=== PATIENT | female | born 1935 | race Caucasian/White ===

== ENCOUNTER 2016-10-25 17:33 | Inpatient (IN) ==
[2016-10-25] MEDS ORDERED: 0.9 % Sodium Chloride 1,000 ML IVC ONE (18:43)
--- NOTE | 2016-10-25 18:45 | Emergency Department Note ---
Disposition Clinical Impression: Afib Qualifiers: Atrial fibrillation type: unspecified Qualified Code(s): I48.91 - Unspecified atrial fibrillation Chest pain Qualifiers: Chest pain type: unspecified Qualified Code(s): R07.9 - Chest pain, unspecified Disposition: Still a Patient Condition: Good Referrals: NO,PCP [Primary Care Provider] - Forms: ED Satisfaction Letter SOB HPI - General Chief Complaint: ED Shortness of Breath/Dyspnea Stated Complaint: Poss PE Time Seen by Provider: 10/25/16 18:05 Source: patient Mode of arrival: ambulatory Limitations: no limitations Nursing Notes Reviewed: Yes Vital Signs Reviewed: Yes - History of Present Illness 81-year-old female with a history of hypertension, A. fib, DVT in the past presents for evaluation of chest pain and short of breath. Patient states symptoms started on Sunday evening. Noted a pain in her right upper jaw. Patient physically noted pain in her chest. Patient noted shortness of breath. Noted to be a pleuritic chest pain. Symptoms started without exertion. Denies E fevers or cough. Denies any history of heart attacks. Does report a history of remote DVT in her right leg. Patient is not currently on anticoagulation. Patient does have known A. fib. Denies any abdominal pain nausea or vomiting. Patient states that she does not want oxygen at home. - Related Data Home Medications Medication Instructions Recorded Confirmed Alprazolam [Xanax 1 MG Tablet] 0.25 mg PO BID 07/20/15 10/24/16 Lisinopril [Zestril] 20 mg PO DAILY 07/20/15 10/24/16 Metoprolol [Lopressor] 25 mg PO BID 07/20/15 10/24/16 Cranberry Fruit Extract [Cranberry] 1,000 mg PO DAILY 03/03/16 10/24/16 Ferrous Sulfate [Iron] 325 mg PO 10/24/16 Previous Rx's Medication Instructions Recorded Omeprazole [PriLOSEC] 20 mg PO DAILY #14 capsule. 02/29/16 Nystatin [Nystatin Suspension] 100,000 units PO QID #120 ml 05/04/16 Cephalexin [Keflex] 500 mg PO QID #40 capsule 10/24/16 HYDROcodone/Acet 5/325 mg [[place] 1 tab PO Q6H #10 tab 10/24/16 5-325 mg] Allergies Allergy/AdvReac Type Severity Reaction Status Date / Time acetaminophen [From Percocet] AdvReac Hallucinati Verified 10/24/16 03:28 ng aspirin AdvReac Nose Bleed Verified 10/24/16 03:28 Oxycodone [From Percocet] AdvReac Hallucinati Verified 10/24/16 03:28 ng TAPE AdvReac Itching Uncoded 10/24/16 03:28 All systems ED: reviewed and negative except as stated. Constitutional: Reports: as per HPI. Denies: fever Eyes: Reports: as per HPI ENT ED: Reports: as per HPI Cardiovascular: Reports: as per HPI, chest pain. Denies: palpitations Respiratory: Reports: as per HPI Gastrointestinal: Reports: as per HPI. 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 - Social History Smoking Status: Never smoker Smokeless Tobacco Status: No Alcohol use: Reports: none Drug use: Reports: none Physical Exam - General Limitations: no limitations General appearance: alert, in no apparent distress - Head Head exam: atraumatic, normocephalic, normal inspection - Eye Eye exam: Present: normal appearance, EOMI - ENT ENT exam: normal exam, mucous membranes moist - Neck Neck exam: Present: normal inspection, trachea midline - Chest Chest inspection: Present: normal inspection, symmetric chest wall rise - Respiratory Respiratory exam: Present: other (Diffusely diminished breath sounds with poor respiratory effort). Absent: respiratory distress, accessory muscle use - Cardiovascular Cardiovascular exam: Present: tachycardia, irregular rhythm - Abdominal Exam Abdominal exam: Present: soft, Non-Tender. Absent: distention, guarding, rebound - Extremities Exam Extremities exam: Present: normal inspection, pedal edema (Trace bilateral) - Back Exam Back exam: Present: normal inspection, full ROM. Absent: tenderness - Neurological Exam Neurological exam: Present: alert, oriented X3, CN II-XII intact - Skin Skin exam: Present: warm, dry, intact Course Course Narrative: Patient was seen and examined. Patient was noted to be tachycardic with irregular rate from the 130s to the 140s. Patient's blood pressure was stable with a systolic in the 120s. Patient's mental status appears at baseline. Patient does have episodes of confabulation. Patient's son at bedside states that they were evaluated at [place] 2 days ago for similar complaint. Concerns for cardiopulmonary etiology of the patient's symptoms which include pulmonary embolism, ACS, pneumonia. Patient will be evaluated with EKG, chest x-ray, labs. The labs from yesterday were reviewed. Patient will also get a CTA of the chest. Patient does have a GFR greater than 30. Risks outweigh the benefits with the patient's kidney function. Patient will be hydrated prior to the scan. Patient will also be started on a Cardizem drip if not adequately controlled with IV fluids. Vital Signs Temperature 97.9 F 10/25/16 17:52 Pulse Rate 101 10/25/16 17:52 Respiratory Rate 20 10/25/16 17:52 Blood Pressure 135/83 10/25/16 17:52 O2 Sat by Pulse Oximetry 91 10/25/16 17:52 Temperature 97.9 F 10/25/16 17:52 Pulse Rate 148 10/25/16 18:26 Respiratory Rate 24 10/25/16 18:26 Blood Pressure 97/78 10/25/16 18:26 O2 Sat by Pulse Oximetry 96 10/25/16 18:26 Oxygen Delivery Oxygen Delivery Nasal Cannula Shortness of Breath/Dyspnea - EKG Data EKG attestation: Yes I reviewed and interpreted this EKG. Rate: Reports: tachycardia Rhythm: Reports: A.Fib [place]/QRS: Reports: normal, RBBB Q waves: Reports: III, aVF T wave inversions noted in: Reports: aVL, v1, v2 When compared to previous EKG there are: no significant changes (sinus rhythm) Interpretation: Reports: unchanged when compared to prior tracing (date) (08/2012 ), nonspecific ST-T wave changes S.B.A.R. - S.B.A.R. Situation: Demographics, MOA Background: Presenting Complaint, Relevant PMH, Meds, & Allergies Assessment: Vital Signs, Course and respsone to treatment, Patient/Family Expectation Recommendation: Barrier(s) to disposition, Recommendation based on pending studies, treatments, or consults Sindy Report Given to: Dr. Levi Callahan Repor Time: 18:52 Attestation Statement - Attestation Attestation: I examined this patient and my medical decision-making was reviewed with the STONE UNLOADER/PA/Advanced Practice Nurse/Resident Physician. I agree with the documented findings, disposition and treatment plan as described except to the extent set forth below. Patient emergency department with chest pain. PCP sent for concern for PE. Patient was hypoxic in the office. ER visit the [place] yesterday and had a CT abdomen was unremarkable. On examination patient is awake and alert. Heart irregularly irregular and tachycardia. Heart rate ranging from 140s to 170s. Lungs clear. Plan. Patient in A. fib with RVR. This appears to be new. We will start on some Cardizem. We will CTA the patient to rule out PE. Last GFR was 47. I believe the risk is outweighed by the benefit at this time. 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
[2016-10-25 19:01] LABS: Basophils % 0.1 %; Eosinophils # 0.1 K/mcL (0.0-0.6); Eosinophils % 0.6 %; Hematocrit 40.6 % (35.3-44.9); Hemoglobin 12.8 g/dL (11.5-15.4); Immature Granulocytes % 0.2 % (0-4); Lymphocytes # 1.5 K/mcL (0.6-4.6); Lymphocytes % 15.4 %; Mean Corpuscular HGB Conc 31.5 g/dL (31.6-35.5); Mean Corpuscular Hemoglobin 27.9 pg (28.0-33.3); Mean Corpuscular Volume 88.6 fL (83.0-100.0); Mean Platelet Volume 11.3 fL (9.4-12.4); Monocytes # 0.7 K/mcL (0.0-1.3); Monocytes % 7.3 %; Neutrophils # 7.6 K/mcL (1.6-8.9); Platelet Count 176 K/mcL (140-400); Red Blood Count 4.58 M/mcL (3.82-4.97); Red Cell Distribution Width 19.5 % (11.5-14.5); Segmented Neutrophils % 76.4 %
[2016-10-25 19:06] LABS: INR 1.3; Prothrombin Time 13.9 Seconds (9.4-12.1)
[2016-10-25 19:08] LABS: Activated Partial Thrombo Time 25.4 Seconds (26.0-36.0)
[2016-10-25 19:17] LABS: Calcium 9.4 mg/dL (8.6-10.8); Potassium 4.3 mEq/L (3.5-4.5)
[2016-10-25 19:23] LABS: VBG HCO3 29.5 mEq/L (21-27); VBG PH 7.37 pH Units (7.32-7.42)
--- NOTE | 2016-10-25 20:11 | Emergency Department Note ---
Disposition Clinical Impression: Pulmonary embolism and infarction Afib Qualifiers: Atrial fibrillation type: unspecified Qualified Code(s): I48.91 - Unspecified atrial fibrillation Disposition: Admitted As Inpatient Condition: Good Referrals: NO,PCP [Non-Partnered Physician] - Forms: ED Satisfaction Letter Time of Disposition: 22:04 SOB HPI - General Chief Complaint: ED Shortness of Breath/Dyspnea Stated Complaint: Poss PE Time Seen by Provider: 10/25/16 18:05 Source: patient Mode of arrival: ambulatory Limitations: no limitations Nursing Notes Reviewed: Yes Vital Signs Reviewed: Yes - History of Present Illness 81 year old female who is a vague historian states that she has been feeling increasingly more dyspneic over the past two weeks. Patient does not have COPD or asthma and is not oxygen dependent or use inhalers or brething treatments at home. Jack states that she also has increased abdominal/chest/rib pain on the RUQ and it is increases with deep breaths. She has had some nausea without vomitting associated with it. Jack has also had chills without recorded fevers at home. Patient states that she followeed up with her primary care doctor, Dr. Wang and he was concerned for a PE and woul dlike a CTA chest to rule it out. Jack also has a history of paroxysmal atrial fibrillation an follows with [facility] for therapy. Her chest pain is described as sharp and non radiating. - Related Data Home Medications Medication Instructions Recorded Confirmed Lisinopril [Zestril] 20 mg PO BID 07/20/15 10/25/16 Metoprolol [Lopressor] 25 mg PO BID 07/20/15 10/25/16 Ferrous Sulfate [Iron] 325 mg PO QAM 10/24/16 10/25/16 Alprazolam [Xanax 0.25 MG Tablet] 0.25 mg PO HS 10/25/16 10/25/16 Nystatin Cream [Mycostatin Cream] 1 appl TP BID PRN 10/25/16 10/25/16 Omeprazole [PriLOSEC] 20 mg PO DAILY PRN 10/25/16 10/25/16 Trolamine Salicylate [Myoflex] 1 appl TP QID PRN 10/25/16 10/25/16 Previous Rx's Medication Instructions Recorded Cephalexin [Keflex] 500 mg PO QID #40 capsule 10/24/16 HYDROcodone/Acet 5/325 mg [[place] 1 tab PO Q6H #10 tab 10/24/16 5-325 mg] Allergies Allergy/AdvReac Type Severity Reaction Status Date / Time acetaminophen [From Percocet] AdvReac Hallucinati Verified 10/24/16 03:28 ng aspirin AdvReac Nose Bleed Verified 10/24/16 03:28 Oxycodone [From Percocet] AdvReac Hallucinati Verified 10/24/16 03:28 ng TAPE AdvReac Itching Uncoded 10/24/16 03:28 Constitutional: Reports: as per HPI. Denies: fever Eyes: Reports: as per HPI ENT ED: Reports: as per HPI Cardiovascular: Reports: as per HPI, chest pain. Denies: palpitations Respiratory: Reports: as per HPI Gastrointestinal: Reports: as per HPI. 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 - Social History Smoking Status: Never smoker Smokeless Tobacco Status: No Alcohol use: Reports: none Drug use: Reports: none Physical Exam - General Limitations: no limitations General appearance: alert, in no apparent distress - Head Head exam: atraumatic, normocephalic, normal inspection - Eye Eye exam: Present: normal appearance, PERRL, EOMI - Expanded Eye Exam Pupils: Left: reactive - ENT ENT exam: normal exam, normal oropharynx, mucous membranes moist - Expanded ENT Exam External ear exam: Present: normal external inspection Mouth exam: Present: normal external inspection Teeth exam: Present: normal inspection Throat exam: Present: normal inspection - Neck Neck exam: Present: normal inspection, full ROM, trachea midline - Chest Chest inspection: Present: normal inspection, symmetric chest wall rise, tenderness (to right lower ribs/midaxillary ) - Respiratory Respiratory exam: Present: normal lung sounds bilaterally - Cardiovascular Cardiovascular exam: Present: tachycardia, irregular rhythm, normal heart sounds - Abdominal Exam Abdominal exam: Present: soft, normal bowel sounds. Absent: Non-Tender, tenderness, distention, guarding, rebound, rigidity, Ballesteros's sign, tenderness at McBurney's Point Abdominal tenderness: Present: RUQ, moderate - Extremities Exam Extremities exam: Present: normal inspection, full ROM. Absent: tenderness, pedal edema - Expanded Upper Extremity Exam Shoulder exam: Present: normal inspection, full ROM Arm exam: Present: normal inspection, full ROM Elbow exam: Present: normal inspection, full ROM Forearm/Wrist exam: Present: normal inspection, full ROM Hand exam: Present: normal inspection, full ROM Vascular exam: Normal: capillary refill, radial pulse - Expanded Lower Extremity Exam Hip/Pelvis exam: Present: normal inspection, full ROM Upper leg exam: Present: normal inspection, full ROM Knee exam: Present: normal inspection, full ROM Lower leg exam: Present: normal inspection, full ROM Ankle exam: Present: normal inspection, full ROM Foot/toe exam: Present: normal inspection, full ROM Neurovascular/Tendon exam: Absent: motor deficit, sensory deficit, tendon deficit - Back Exam Back exam: Present: normal inspection, full ROM. Absent: tenderness - Neurological Exam Neurological exam: Present: alert, oriented X3 - Expanded Neurological Exam Patient oriented to: Present: person, place, time Coma Scale Eye Opening: Spontaneous Coma Scale Motor Response: Obeys Commands Coma Scale Verbal Response: Oriented Coma Scale Total: 15 - Psychiatric Psychiatric exam: Present: normal affect, normal mood - Skin Skin exam: Present: warm, dry, intact, normal color Course Course Narrative: accepted sign out from Dr. Juarez/Con and the plan is to followup on her CTA chest for rule out PE. If study is negative we will still admit or dypnea, hypoxia, atrial fib with RVR. SHe is currently on cardizem drip at the HR is 110s - Consultations Consultation #1: radiologist called with findings of acute right PE involved in the R pulmonary artery and extends into the right middle/lower lobe in addition to pulmonary edema/infarct on the right side. Right Heart strain present as well. We will start heparin therapy now. Time: 21:04 Consultation #2: discussed case with Dr. Pradhan and he would like vascular surgery consulted before acceptance to the medicine service to see if they would do thrombolytics vs thrombectomy for patient. Vascular surgery has been consulted. Patient is full code. Time: 21:27 Consultation #3: vascular surg (Dinesh) does not reccomend thrombolytics at this time secondary to age and increased bleeding risk. we will update hospitalist. Time: 22:04 Vital Signs Temperature 97.9 F 10/25/16 17:52 Pulse Rate 101 10/25/16 17:52 Respiratory Rate 20 10/25/16 17:52 Blood Pressure 135/83 10/25/16 17:52 O2 Sat by Pulse Oximetry 91 10/25/16 17:52 Temperature 97.9 F 10/25/16 17:52 Pulse Rate 91 10/25/16 22:01 Respiratory Rate 20 10/25/16 22:01 Blood Pressure 94/49 10/25/16 22:01 O2 Sat by Pulse Oximetry 96 10/25/16 22:01 Oxygen Delivery Oxygen Delivery Nasal Cannula Shortness of Breath/Dyspnea - Lab Data Result diagrams: 10/25/16 18:47 10/25/16 18:47 Lab Results 10/25/16 10/25/16 10/25/16 Range/Units 18:47 18:47 18:47 WBC 9.9 D (4.3-11.1) K/mcL RBC 4.58 (3.82-4.97) M/mcL Hgb 12.8 (11.5-15.4) g/dL Hct 40.6 (35.3-44.9) % MCV 88.6 (83.0-100.0) fL MCH 27.9 L (28.0-33.3) pg MCHC 31.5 L (31.6-35.5) g/dL RDW 19.5 H (11.5-14.5) % Plt Count 176 (140-400) K/mcL MPV 11.3 (9.4-12.4) fL Immature Gran % 0.2 (0-4) % Seg Neutrophils % 76.4 % Lymphocytes % 15.4 % Monocytes % 7.3 % Eosinophils % 0.6 % Basophils % 0.1 % Neutrophils # 7.6 (1.6-8.9) K/mcL Lymphocytes # 1.5 (0.6-4.6) K/mcL Monocytes # 0.7 (0.0-1.3) K/mcL Eosinophils # 0.1 (0.0-0.6) K/mcL Basophils # 0.0 (0.0-0.2) K/mcL PT (9.4-12.1) Seconds INR APTT (26.0-36.0) Seconds VBG pH (7.32-7.42) pH Units VBG pCO2 (41-51) mmHg VBG pO2 (25-40) mmHg VBG HCO3 (21-27) mEq/L Sodium 128 L D (136-145) mEq/L Potassium 4.3 (3.5-4.5) mEq/L Chloride 93 L (98-109) mEq/L Carbon Dioxide 26 (19-29) mEq/L BUN 20 (7-20) mg/dL Creatinine 1.31 H (0.57-1.11) mg/dL Est GFR ( Amer) 47 L (> 60) Est GFR (Non-Af Amer) 39 L (> 60) BUN/Creatinine Ratio 15 (6-26) Glucose 113 H (70-99) mg/dL Calculated Osmolality 269 L (280-300) Calcium 9.4 (8.6-10.8) mg/dL Troponin I 0.03 (0-0.03) ng/mL B-Natriuretic Peptide (0-100) pg/mL 10/25/16 10/25/16 10/25/16 Range/Units 18:47 18:47 18:56 WBC (4.3-11.1) K/mcL RBC (3.82-4.97) M/mcL Hgb (11.5-15.4) g/dL Hct (35.3-44.9) % MCV (83.0-100.0) fL MCH (28.0-33.3) pg MCHC (31.6-35.5) g/dL RDW (11.5-14.5) % Plt Count (140-400) K/mcL MPV (9.4-12.4) fL Immature Gran % (0-4) % Seg Neutrophils % % Lymphocytes % % Monocytes % % Eosinophils % % Basophils % % Neutrophils # (1.6-8.9) K/mcL Lymphocytes # (0.6-4.6) K/mcL Monocytes # (0.0-1.3) K/mcL Eosinophils # (0.0-0.6) K/mcL Basophils # (0.0-0.2) K/mcL PT 13.9 H (9.4-12.1) Seconds INR 1.3 APTT 25.4 L (26.0-36.0) Seconds VBG pH 7.37 (7.32-7.42) pH Units VBG pCO2 51 (41-51) mmHg VBG pO2 34 (25-40) mmHg VBG HCO3 29.5 H (21-27) mEq/L Sodium (136-145) mEq/L Potassium (3.5-4.5) mEq/L Chloride (98-109) mEq/L Carbon Dioxide (19-29) mEq/L BUN (7-20) mg/dL Creatinine (0.57-1.11) mg/dL Est GFR ( Amer) (> 60) Est GFR (Non-Af Amer) (> 60) BUN/Creatinine Ratio (6-26) Glucose (70-99) mg/dL Calculated Osmolality (280-300) Calcium (8.6-10.8) mg/dL Troponin I (0-0.03) ng/mL B-Natriuretic Peptide 307 H (0-100) pg/mL - EKG Data EKG attestation: Yes I reviewed and interpreted this EKG. EKG results narrative: atrial fibrillation with rate of 148. NO STEMI. change from 08/12/12. 1814 Attestation Statement - Attestation Attestation: I performed a history and physical examination of the patient and discussed his management with the resident. I reviewed the residents note and agree with the documented findings and plan of care. This is an 81-year-old female who was sent in by her primary physician with suspicion of pulmonary embolism. She has been having shortness of breath for about a week. She had a large pulmonary emboli on the right side. The case was discussed with vascular surgery as well as the hospitalist to arrange for admission. She has remained clinically stable and is not a TPA candidate at this time. Admitted to the hospitalist service.
[2016-10-25] MEDS ORDERED: *HR* Heparin 5,000 UNIT/ML VIAL IVP ONE (21:05)
[2016-10-25] MEDS ORDERED: *HR* Heparin 5,000 UNIT/ML VIAL IVP PRN ×2 (21:05)
[2016-10-25] MEDS ORDERED: Heparin 25,000 UNIT/500 ML D5W 25,000 UNIT/500 ML MLS IVC SCH (21:15)
[2016-10-25] MEDS ORDERED: Naloxone 0.4 MG/ML INJ IVP PRN (23:48)
--- NOTE | 2016-10-25 23:48 | Internal Med History&Physical ---
<Mirlande Spencer - Last Filed: 10/26/16 01:24> Date of Encounter: 10/26/16 Time of Encounter: 23:00 Assessment and Plan (1) Pulmonary embolism and infarction Current visit: Yes Status: Acute - CTA chest found significant emboli in right pulmonary artery extending to right middle lobe and lower lobe along with some possible right lung infarct and pleural effusion - Unprovoked PE may be secondary to underlying coagulopathy given patient has history of DVT in the past. - Will obtain echocardiogram to evaluate for possible right heart strain. May consider cardiology consult if echo finds significant heart dysfunction. - Will switch from heparin drip to Lovenox so patient does not need to get frequent poke. - Lovenox 1 mg/kg SQ q12H for now given CrCl at 35. May need to change to q24H if CrCl 30 or less. - Okay to give one dose of oxycodone 5 mg for pleuritic pain now. Will give Tylenol prn pain. - Supplemental oxygen. - Closely monitor with continuous pulse oximetry and telemetry. (2) Afib Current visit: Yes Status: Acute - Newly diagnosed A-fib. - Likely secondary to current PE and possible heart strain. - Currently in sinus rhythm at rate of 90s. - Will switch from Cardizem drip to PO metoprolol for rate control. - Lovenox for anticoagulation. - Closely monitor with telemetry. - Given patient will need to be on anticoagulation for PE, inpatient cardiology consult is not indicated at this time. But patient is recommended to follow up with her outpatient cardiology Dr. Lizama. Qualifiers: Atrial fibrillation type: paroxysmal Qualified Code(s): I48.0 - Paroxysmal atrial fibrillation (3) UTI (urinary tract infection) Current visit: No Status: Acute - Dysuria with UA from 10/24/16 suggested possible UTI. - Start IV ceftriaxone. Qualifiers: Urinary tract infection type: site unspecified Hematuria presence: without hematuria Qualified Code(s): N39.0 - Urinary tract infection, site not specified (4) Renal insufficiency Current visit: Yes Status: Acute - SCr 1.31 with CrCl 35. - Can potential get worse given patient had IV contrast from CTA chest. - Aggressive hydration with IV NS. - Continue to monitor renal function and electrolytes. (5) Hyponatremia Current visit: Yes Status: Acute - Na 128 on initial presentation, which is an acute drop from Na 136 on 10/24. - History of hyponatremia from diuretics in the past. - Continue IV NS. - Recheck in the morning. (6) Hypertension Current visit: Yes Status: Chronic - Continue home dose antihypertensive regimen. Qualifiers: Hypertension type: essential hypertension Qualified Code(s): I10 - Essential (primary) hypertension Internal Medicine - H&P: HPI Chief complaint: Right-sided chest pain and shortness of breath Admitted From: Emergency Dept Plans for Post Hospital Care: Home History of present illness: Ms. Ruiz is a 81 year old female with PMH of atrial premature beats, HTN, venous insufficiency, hyponatremia, history of right LE DVT (in 07/2015 and was on Coumadin for 6-7 months but then discontinued), history of cervical cancer in 1984 s/p hysterectomy and radiation. Patient first noticed to have strange feeling behind right ear on 10/22 morning and then progressed to become right lower chest pain. The pain is aggravated by deep breath and cough. It's associated with shortness of breath and some subjective fever. Patient had an ED visit on 10/24 and was discharged home with Keflex for UTI since labs, CXR and CT A/P at that time were mostly unremarkable. Patient continues to right- sided chest pain and started to notice some pink-tinged sputum production so she saw her Dr. Wang on 10/25 who sent patient to [place] ED for the concern of PE. Patient denies lightheadedness, syncope, significant LE swelling, nausea, vomiting, diarrhea, hematochezia, melena, hematuria. Patient still has some dysuria. Patient reports being cancer-free and denies recent travel, surgery or long-term immobilization. Patient is full code. CTA chest in ED found significant emboli in right pulmonary artery extending to right middle lobe and lower lobe along with some possible right lung infarct and pleural effusion. Patient was started on heparin drip. Patient was also noted to develope A-fib RVR in ED but converted to sinus rhythm after Cardizem was started. Patient will be admitted for further evaluation and management. Past Med Surg Social Fam HX - Past Medical History Medical history: cancer (Cervical cancer in 1984 s/p hysterectomy and radiation therapy.), hyperlipidemia, hypertension, peripheral artery disease Psychiatric history: anxiety - Past Surgical History Surgical History: non-contributory, hip replacement (Bilateral), hysterectomy - Social History Smoking Status: Never smoker Smokeless Tobacco Status: No Alcohol use: none Drug use: none Internal Medicine - H&P: Meds Lisinopril [Zestril] 20 mg PO BID 07/20/15 [History] Metoprolol [Lopressor] 25 mg PO BID 07/20/15 [History] Cephalexin [Keflex] 500 mg PO QID #40 capsule 10/24/16 [Rx] Ferrous Sulfate [Iron] 325 mg PO QAM 10/24/16 [History] HYDROcodone/Acet 5/325 mg [Jachin 5-325 mg] 1 tab PO Q6H #10 tab 10/24/16 [Rx] Alprazolam [Xanax 0.25 MG Tablet] 0.25 mg PO HS 10/25/16 [History] Nystatin Cream [Mycostatin Cream] 1 appl TP BID PRN 10/25/16 [History] Omeprazole [PriLOSEC] 20 mg PO DAILY PRN 10/25/16 [History] Trolamine Salicylate [Myoflex] 1 appl TP QID PRN 10/25/16 [History] Allergies aspirin Adverse Reaction (Verified 10/24/16 03:28) Nose Bleed TAPE Adverse Reaction (Uncoded 10/24/16 03:28) Itching All Systems PM: A 10-system review of systems was performed and is negative for pertinent findings except as documented above in the HPI. - Constitutional Constitutional: fever(s), weight loss (4-5 lbs over 3 months), no anorexia - EENT Eyes: no change in vision Ears: no decreased hearing Nose, mouth and throat: no dysphagia, no odynophagia - Cardiovascular Cardiovascular ROS IM: as per HPI, chest pain, palpitations, no lightheadedness , no syncope - Respiratory Respiratory: as per HPI, cough, dyspnea, change in phlegm color - Gastrointestinal Gastrointestinal: constipation (from iron pill), no abdominal pain, no diarrhea , no hematochezia, no nausea, no vomiting - Genitourinary Genitourinary: dysuria, no difficulty urinating, no hematuria - Musculoskeletal Musculoskeletal ROS IM: no arthralgias, no myalgias - Integumentary Integumentary IM: no pruritus, no rash - Neurological Neurological ROS: no focal weakness, no numbness, no tingling - Hematologic/Lymphatic Hematologic/Lymphatic: no easy bleeding, no easy bruising - Constitutional Vitals: Temp Pulse Resp BP Pulse Ox 97.9 F 73 18 131/64 96 10/25/16 17:52 10/25/16 22:45 10/25/16 22:51 10/25/16 22:51 10/25/16 22:45 General appearance: Present: cooperative, mild distress (from intermittent pain underneath right breast.), A&O X 3, answers questions appropriately - Head Head exam: Present: atraumatic, normocephalic - Eye Eye exam: Present: EOMI, PERRL, conjuntiva pink, sclera anicteric - Neck Neck exam general surgery: Present: supple, trachea midline. Absent: lymphadenopathy - Respiratory Respiratory exam: Present: decreased breath sounds. Absent: accessory muscle use, rales, rhonchi, wheezes - Cardiovascular Cardiovascular exam: Present: +S1, +S2, tachycardia. Absent: diastolic murmur, gallop, rubs, systolic murmur - GI/Abdominal GI/Abdominal exam: Present: normal bowel sounds, soft, no peritoneal signs. Absent: distended, tenderness - Extremities Exam Extremities exam: Present: warm, radial pulses palpable and symetrical. Absent : cyanotic, pedal edema - Neurological Exam Neurological exam: Present: CN II-XII intact, oriented X3, no focal deficits. Absent: pronater drift, facial droop, speech deficit - Skin Skin exam: Present: dry, intact, warm Internal Med - H&P Results - Labs CBC & Chem 7: 10/25/16 18:47 10/25/16 18:47 Labs: Short CBC 10/25/16 Range/Units 18:47 WBC 9.9 D (4.3-11.1) K/mcL Hgb 12.8 (11.5-15.4) g/dL Hct 40.6 (35.3-44.9) % Plt Count 176 (140-400) K/mcL Neutrophils # 7.6 (1.6-8.9) K/mcL BMP 10/25/16 Range/Units 18:47 Sodium 128 L D (136-145) mEq/L Potassium 4.3 (3.5-4.5) mEq/L Chloride 93 L (98-109) mEq/L Carbon Dioxide 26 (19-29) mEq/L BUN 20 (7-20) mg/dL Creatinine 1.31 H (0.57-1.11) mg/dL Glucose 113 H (70-99) mg/dL Calcium 9.4 (8.6-10.8) mg/dL Cardiac Enzymes 10/25/16 Range/Units 18:47 Troponin I 0.03 (0-0.03) ng/mL - Impressions Impressions Chest CTA 10/25/16 18:22 IMPRESSION: Extensive acute pulmonary embolus, right-sided as described above. Findings concerning for elevated right heart pressures/RV strain pattern. Close clinical follow-up is recommended. Moderate right-sided pleural effusion and multifocal consolidations within the right lung could represent pneumonia or pulmonary infarct. The findings and recommendations were discussed Dr. Sims at 9:01 p.m., 10/25/2016. D/ / Dilan Leiva MD / Dilan Leiva MD Interpreting Provider: Dilan Leiva MD <Chalo Samuels - Last Filed: 10/26/16 04:44> Date of Encounter: 10/25/16 Internal Medicine - H&P: HPI History of present illness: Ms. Ruiz is a 81 year old female Past Med Surg Social Fam HX - Additional Family History Additional family history: chart review reports family history of CAD All Systems PM: A 10-system review of systems was performed and is negative for pertinent findings except as documented above in the HPI. - Constitutional Vitals: Temp Pulse Resp BP Pulse Ox 97.9 F 70 17 132/76 95 10/26/16 04:08 10/26/16 04:08 10/26/16 04:08 10/26/16 04:08 10/26/16 04:08 Internal Med - H&P Results - Labs CBC & Chem 7: 10/25/16 18:47 10/25/16 18:47 - Attending Attestation I personally interviewed and examined this patient and my medical decision- making was reviewed with the Resident Physician. I agree with the documented findings, disposition and treatment plan as described except to the extent set forth below. Patient is an 81 year old female with prior history of DVT for which she was on warfarin for a couple of months. She comes in with signs and symptoms concerning for Pulmonary embolism confirmed on CTA. She was started on heparin drip in the ER but we will switch to Lovenox SC at twice daily therapeutic dosing. She has been counseled on her options for intermediate anticoagulation and she prefers warfarin for familiarity and cost, therefore when stable she can be discharged home on warfarin with lovenox for bridging.
[2016-10-26] MEDS ORDERED: *HR* OxyCODONE Immed Rel 5 MG TABLET PO ONE (00:09)
[2016-10-26] MEDS: Acetaminophen 325 MG TABLET PO PRN ×3 (00:28→15:41)
[2016-10-26] MEDS: 0.9 % Sodium Chloride 1,000 ML IVC SCH ×2 (00:45→09:28)
[2016-10-26 05:19] LABS: Basophils % 0.3 %; Eosinophils # 0.1 K/mcL (0.0-0.6); Eosinophils % 1.2 %; Hematocrit 36.4 % (35.3-44.9); Immature Granulocytes % 0.3 % (0-4); Lymphocytes # 1.4 K/mcL (0.6-4.6); Mean Corpuscular HGB Conc 30.5 g/dL (31.6-35.5); Mean Corpuscular Volume 88.6 fL (83.0-100.0); Monocytes # 0.8 K/mcL (0.0-1.3); Monocytes % 7.9 %; Neutrophils # 7.2 K/mcL (1.6-8.9); Platelet Count 178 K/mcL (140-400); Red Blood Count 4.11 M/mcL (3.82-4.97); Red Cell Distribution Width 19.5 % (11.5-14.5); Segmented Neutrophils % 75.3 %
[2016-10-26 05:30] LABS: Hemoglobin 11.1 g/dL (11.5-15.4)
[2016-10-26 05:41] LABS: Albumin 2.4 g/dL (3.5-5.0); Albumin/Globulin Ratio 0.7 (1.1-2.2); Bilirubin,Total 0.3 mg/dL (0.2-1.2); Calcium 8.6 mg/dL (8.6-10.8); Globulin 3.6 g/dL (2.4-3.5); Potassium 4.5 mEq/L (3.5-4.5)
[2016-10-26] MEDS ORDERED: *HR* Enoxaparin 100 MG/ML SYRINGE SQ SCH (06:00)
--- NOTE | 2016-10-26 08:08 | Vascular/Endovasc Consult Note ---
Date of Encounter: 10/26/16 Time of Encounter: 07:45 Assessment and Plan (1) Pulmonary embolism and infarction Current Visit: Yes Status: Acute The pathophysiology and natural history of pulmonary embolism was discussed with the patient and all questions were answered. The patient has an acute pulmonary embolism. She is currently resting comfortable and receiving 2L O2 by nasal cannula. She denies chest pain or shortness of breath at rest. Her age and comorbid conditions are a relative contraindication to lytic therapy. Lytic therapy would likely have little potential benefit with significant risk. At this time continue with heparin and transition to oral anticoagulation. The patient reports a prior history of DVT and also atrial fibrillation. Lifelong anticoagulation is recommended. However, if she develops a contraindication to anticoagulation, then an inferior vena cava filter should be considered. (2) Afib Current Visit: Yes Status: Acute Qualifiers: Atrial fibrillation type: paroxysmal Qualified Code(s): I48.0 - Paroxysmal atrial fibrillation (3) Hypertension Current Visit: Yes Status: Chronic She was counseled regarding atherosclerotic risk factor reduction. Qualifiers: Hypertension type: essential hypertension Qualified Code(s): I10 - Essential (primary) hypertension (4) CKD (chronic kidney disease) stage 3, GFR 30-59 ml/min Current Visit: No Status: Chronic - History of Present Illness Consult date: 10/26/16 Requesting physician: Ana Sims Consult reason: Deep vein thrombosis, pulmonary embolus Chief complaint: Pulmonary embolus History of present illness: Ms. Ruiz is a 81 year old female who was seen in the emergency room with complaints of chest pressure and shortness of breath. As part of her evaluation she underwent a CTA of the chest which revealed right pulmonary emboli with a possible right lung infarction. The patient was started on a heparin drip and an echocardiogram revealed some evidence of a right heart strain. She was admitted to [facility] and vascular surgery was consulted for further evaluation. At the time of examination, she reports that she is feeling much better. She is resting comfortably and easily arousable. She currently denies chest pain or shortness of breath. Past Med Surg Social Fam HX - Past Medical History Medical history: cancer (Cervical cancer in 1984 s/p hysterectomy and radiation therapy.), hyperlipidemia, hypertension, peripheral artery disease Psychiatric history: anxiety - Past Surgical History Surgical History: non-contributory, hip replacement (Bilateral), hysterectomy - Social History Smoking Status: Never smoker Smokeless Tobacco Status: No Alcohol use: none Drug use: none Medications and Allergies Lisinopril [Zestril] 20 mg PO BID 07/20/15 [History] Metoprolol [Lopressor] 25 mg PO BID 07/20/15 [History] Cephalexin [Keflex] 500 mg PO QID #40 capsule 10/24/16 [Rx] Ferrous Sulfate [Iron] 325 mg PO QAM 10/24/16 [History] HYDROcodone/Acet 5/325 mg [Aguilar 5-325 mg] 1 tab PO Q6H #10 tab 10/24/16 [Rx] Alprazolam [Xanax 0.25 MG Tablet] 0.25 mg PO HS 10/25/16 [History] Nystatin Cream [Mycostatin Cream] 1 appl TP BID PRN 10/25/16 [History] Omeprazole [PriLOSEC] 20 mg PO DAILY PRN 10/25/16 [History] Trolamine Salicylate [Myoflex] 1 appl TP QID PRN 10/25/16 [History] Allergies aspirin Adverse Reaction (Verified 10/24/16 03:28) Nose Bleed TAPE Adverse Reaction (Uncoded 10/24/16 03:28) Itching All Systems Review: A 10-system review of systems was performed and is negative for pertinent findings except as documented above in the HPI. - Constitutional Constitutional: no chills, no fever(s) - Cardiovascular Cardiovascular: no chest pain at rest, no dyspnea at rest Exam Vital Signs, Last 4 Hours Temp Pulse Resp BP Pulse Ox 10/26/16 07:51 81 25 130/51 96 10/26/16 04:08 97.9 F 70 17 132/76 95 General: Present: Conversant, No Apparent Distress HEENT: Present: Trachea midline, Pupils equal Neck: Absent: JVD, Lymphadenopathy, Left Carotid bruit, Right Carotid bruit Cardiac: Present: Irregular Rhythm Lungs: Present: Normal Breath Sounds, No Wheeze, Rales, Rhonchi Neuro: Present: Alert and responsive, No focal deficits noted, Motor nerves grossly intact, Sensory nerves grossly intact Abdomen: Present: Soft, Non-tender Vascular: Present: Normal capillary refill, Edema (trace). Absent: Cyanosis Skin: Present: No rashes noted on visualized skin Consult Discharge Plan - Plan Referrals: Eduardo Wang MD [Primary Care Provider] - 11/02/16 9:45 am (PLEASE SHOW UP 15 MINUTES EARLY) Noel Lizama MD [Partnered Physician] - 11/02/16 2:15 pm
[2016-10-26] MEDS: Lisinopril 20 MG TABLET PO SCH ×2 (09:26→20:40)
[2016-10-26 11:20] LABS: INR 1.3; Prothrombin Time 14.1 Seconds (9.4-12.1)
--- NOTE | 2016-10-26 13:33 | ECHO - Doppler Report ---
Echocardiogram Name: Vivian Ruiz Date of Study: 10/26/2016 Date: 1935 Ht: 61.0 in Medical Record#: [id number] Age: 81 Wt: 205.0 lb Gender: Female BSA: 1.91 Order #: [id number] Location: [facility] Room #: 2N04 Reading Physician: Isa De La Garza DO Telecommunications Support: Yung Overton RN Ordering Physician: Mirlande Spencer DO Primary Physician: Eduardo Wang MD Indications: Pulmonary embolus Impressions: LVEF 60-65%. Normal left ventricular size and systolic function. Mild concentric hypertrophy of the left ventricle. There is evidence of mild diastolic dysfunction of the left ventricle. Atypical septal motion. RV size and function are normal as seen in the parasternal views, apical and subcostal. Mild aortic regurgitation. Mild mitral regurgitation. Mild-moderate tricuspid regurgitation. Estimated RVSP was 54 mmHg. IVC is not dilated. Normal respiratory collapse. Moderate pulmonary hypertension. Left Ventricular Wall Motion: Rest Echo Findings All wall segments showed normal motion. Findings: Study Quality * Technically adequate exam. ECG Findings * Normal sinus rhythm. Left Ventricle * LVEF 60-65%. * Mild concentric left ventricular hypertrophy. * Mild left ventricular diastolic dysfunction. * Dyskinetic septum. Mitral Valve * Normal mitral valve structure. * No mitral stenosis. * Mild mitral annular calcification * Mild mitral regurgitation. Aortic Valve * Mild aortic regurgitation. * Normal aortic valve structure. * No aortic stenosis. * Aortic valve not well visualized. Tricuspid Valve * Normal tricuspid valve structure. * Mild-moderate tricuspid regurgitation. * Estimated RA pressure is 3 mmHg. * Estimated RVSP is 54 mmHg. * Moderate pulmonary hypertension. Pulmonic Valve * Pulmonic valve is not well visualized. * No pulmonic stenosis. * No pulmonic regurgitation. Pulmonary Artery * Pulmonary artery not well visualized. Right Ventricle * Normal right ventricular structure and function. Normal Lat S Raheel. Right Atrium * Normal right atrial size. Left Atrium * Moderately dilated left atrium. Interatrial Septum * No evidence of PFO by color Doppler. Pericardium * There is no pericardial effusion present. IVC * Normal IVC dimensions and inspiratory collapse. Aorta * Normally sized aortic root. History Hypertension 08/22/2012 a Previous Echo was performed. Measurements: BP: 130/ 51 2D Normal Values RVIDd: 3.10 cm <2.7 cm IVSd: 1.30 cm 0.6 - 1.0 cm LVIDd: 3.90 cm 3.7 - 5.6 cm LVPWd: 1.30 cm 0.6 - 1.1 cm LVIDs: 2.30 cm 1.5 - 3.6 cm LA: 3.70 cm 2.0 - 4.0cm %FS: 41.00 cm >25 % LVOT Diam: 1.80 cm LA volume: 75 Mitral Valve Peak E:.50 m/sec Peak A:.71 m/sec E/A Ratio:0.7 Peak E' Lat Raheel:9.65 cm/s Peak E' Med Raheel:6.73 cm/s E/E' Lat Ratio:5.2 E/E' Med Ratio:7.5 Aortic Valve AI pressure Half-time: 605.00 msec Tricuspid Valve TV Regurg Peak Grad: 51.00mmHg TV Regurg Peak Raheel: 3.56m/sec Updated by Isa De La Garza on 10/26/2016 1:25:37 PM electronically signed on 10/26/2016 1:26:55 PM with status of Final Wall Motion Ortega: 1=Normal, 2=Hypokinesis, 3=Akinesis, 4=Dyskinesis, 5=Aneurysmal, 6=Hyperkinetic, X=Not Visualized (Blank)=Missing
[2016-10-26] MEDS ORDERED: Methyl Salicylate/Menthol 28 GM TUBE TP PRN (15:23)
--- NOTE | 2016-10-26 16:36 | Internal Med Progress Note ---
Date of Encounter: 10/26/16 Time of Encounter: 09:00 - Assessment and plan (1) Pulmonary embolism and infarction Current Visit: Yes Status: Acute Assessment and plan: CT angio shows acute PE with possible pulmonary infarct on the right side. - We will continue heparin drip for anticoagulation, patient has previous DVT, this is the second thrombus disease, pt may need lifelong anticoagulation. - CTA also suspect RV strain, Pt developed A Fib in ER, mild elevated BNP. Echo shows RV size and function are normal. Right now vital signs stable. Will continue anticoagulation and close monitoring patient. Patient is at high risk because she is on heparin drip, need close monitoring. (2) CKD (chronic kidney disease) stage 3, GFR 30-59 ml/min Current Visit: No Status: Chronic Assessment and plan: Patient has a history of CKD. Creatinine is about at her baseline. Normal saline hydration has been given after contrast use. Will closely follow renal function. (3) UTI (urinary tract infection) Current Visit: No Status: Acute Assessment and plan: Continue Rocephin treatment Qualifiers: Urinary tract infection type: site unspecified Hematuria presence: without hematuria Qualified Code(s): N39.0 - Urinary tract infection, site not specified (4) Afib Current Visit: Yes Status: Acute Assessment and plan: Patient has A. fib RVR in ER. Converts to sinus rhythm now. Will continue beta sagrario for rate control. Patient is on anticoagulation for PE, which should be lifelong. Qualifiers: Atrial fibrillation type: paroxysmal Qualified Code(s): I48.0 - Paroxysmal atrial fibrillation (5) Hypertension Current Visit: Yes Status: Chronic Assessment and plan: Continue home medication Qualifiers: Hypertension type: essential hypertension Qualified Code(s): I10 - Essential (primary) hypertension (6) Hyponatremia Current Visit: Yes Status: Acute Assessment and plan: Improved now. - Time Spent With Patient Greater than 35 minutes - Subjective Interval history: Patient is a 81-year-old female admitted for acute pulmonary embolism. She was also found A. fib with rapid ventricular response in ER. Past medical history is significant for DVT, hypertension, hyperlipidemia. She was seen and examined. Still complaint right-sided chest pain, which is a pleural pain, worsening on deep breath. Patient denies shortness of breath. Vitals are stable. Sinus rhythm now. We will continue anticoagulation with heparin drip. Started coumadin today. Continue closely monitoring. - Constitutional Vitals: Temp Pulse Resp BP Pulse Ox 99.0 F 81 26 151/66 97 10/26/16 15:37 10/26/16 15:53 10/26/16 15:37 10/26/16 15:37 10/26/16 15:37 General appearance: Present: cooperative, A&O X 3, no acute distress, answers questions appropriately - Head Head exam: Present: atraumatic, normocephalic - Eye Eye exam: Present: PERRL, conjuntiva pink, sclera anicteric Pupils: Present: PERRL - Neck Neck exam general surgery: Present: supple, trachea midline. Absent: lymphadenopathy - Respiratory Respiratory exam: Present: CTAB. Absent: accessory muscle use, rales, rhonchi, wheezes - Cardiovascular Cardiovascular exam: Present: RRR, +S1, +S2. Absent: diastolic murmur, gallop, rubs, systolic murmur - GI/Abdominal GI/Abdominal exam: Present: normal bowel sounds, soft, no peritoneal signs. Absent: distended, tenderness - Extremities Exam Extremities exam: Present: warm, radial pulses palpable and symetrical. Absent : calf tenderness, cyanotic, pedal edema - Neurological Exam Neurological exam: Present: CN II-XII intact, oriented X3, no focal deficits. Absent: pronater drift, facial droop, speech deficit - Skin Skin exam: Present: dry, intact Internal Medicine: Result - Labs CBC & Chem 7: 10/26/16 04:11 10/26/16 04:11 - ABG Interpretation ABG results: PT/INR, D-dimer PT 14.1 Seconds (9.4-12.1) H 10/26/16 11:01 Consult Discharge Plan - Plan Referrals: Eduardo Wang MD [Primary Care Provider] - 11/02/16 9:45 am (PLEASE SHOW UP 15 MINUTES EARLY) Noel Lizama MD [Partnered Physician] - 11/02/16 2:15 pm
[2016-10-26 16:44] LABS: Hematocrit 34.6 % (35.3-44.9); Hemoglobin 10.8 g/dL (11.5-15.4); Mean Corpuscular HGB Conc 31.2 g/dL (31.6-35.5); Mean Corpuscular Volume 89.6 fL (83.0-100.0); Mean Platelet Volume 10.7 fL (9.4-12.4); Platelet Count 144 K/mcL (140-400); Red Blood Count 3.86 M/mcL (3.82-4.97); Red Cell Distribution Width 19.7 % (11.5-14.5)
[2016-10-26] MEDS ORDERED: *HR* Heparin 5,000 UNIT/ML VIAL IVP PRN ×2 (17:00)
[2016-10-26] MEDS ORDERED: *HR* Heparin 5,000 UNIT/ML VIAL IVP ONE (17:00)
[2016-10-26] MEDS ORDERED: Warfarin perPT PO PRN (18:00)
[2016-10-26] MEDS ORDERED: *HR* Warfarin 4 MG TABLET PO ONE (18:00)
[2016-10-26] MEDS: Ibuprofen 600 MG TABLET PO PRN (18:01)
[2016-10-26] MEDS: Heparin 25,000 UNIT/500 ML D5W 25,000 UNIT/500 ML MLS IVC SCH (18:03)
--- NOTE | 2016-10-26 19:29 | Electrocardiograph Report ---
[address] [place] [address] Test Date: 2016-10-25 Pat Name: Vivian Ruiz Department: 102 Room: 2N04 Gender: F [employer]ouble Shooter: Brent : 1935 Requested By: Caty See Order Number: [id number] Reading MD: Law Hammer MD Measurements Intervals [place] Rate: 148 P: SD: 0 QRS: -22 QRSD: 117 T: -5 QT: 292 QTc: 377 Interpretive Statements ATRIAL FIBRILLATION WITH RAPID VENTRICULAR RESPONSE RIGHT BUNDLE BRANCH BLOCK INFERIOR MYOCARDIAL INFARCTION, OF INDETERMINATE AGE Electronically Signed On 10-26-2016 19:28:18 EDT by Law Hammer MD
[2016-10-27] MEDS: Acetaminophen 325 MG TABLET PO PRN ×4 (01:02→21:57)
[2016-10-27 01:22] LABS: Basophils % 0.3 %; Eosinophils # 0.2 K/mcL (0.0-0.6); Hematocrit 33.7 % (35.3-44.9); Hemoglobin 10.5 g/dL (11.5-15.4); Immature Granulocytes % 0.1 % (0-4); Lymphocytes # 1.2 K/mcL (0.6-4.6); Lymphocytes % 16.3 %; Mean Corpuscular HGB Conc 31.2 g/dL (31.6-35.5); Mean Corpuscular Hemoglobin 28.2 pg (28.0-33.3); Mean Corpuscular Volume 90.6 fL (83.0-100.0); Mean Platelet Volume 11.6 fL (9.4-12.4); Monocytes # 0.5 K/mcL (0.0-1.3); Monocytes % 6.9 %; Neutrophils # 5.4 K/mcL (1.6-8.9); Platelet Count 158 K/mcL (140-400); Red Blood Count 3.72 M/mcL (3.82-4.97); Red Cell Distribution Width 19.8 % (11.5-14.5); Segmented Neutrophils % 73.4 %
[2016-10-27 01:27] LABS: INR 1.3; Prothrombin Time 14.6 Seconds (9.4-12.1)
[2016-10-27 01:39] LABS: Calcium 8.5 mg/dL (8.6-10.8); Potassium 4.5 mEq/L (3.5-4.5)
[2016-10-27 02:02] LABS: Activated Partial Thrombo Time 196.1 Seconds (26.0-36.0)
[2016-10-27 02:28] LABS: Heparin anti-factor XA UFH 1.39 IU/mL (0.30-0.70)
[2016-10-27] MEDS ORDERED: *HR* Enoxaparin 100 MG/ML SYRINGE SQ SCH (06:00)
[2016-10-27] MEDS: Lisinopril 20 MG TABLET PO SCH ×2 (08:12→20:11)
[2016-10-27] MEDS: Heparin 25,000 UNIT/500 ML D5W 25,000 UNIT/500 ML MLS IVC SCH ×2 (12:52→17:51)
--- NOTE | 2016-10-27 17:13 | Internal Med Progress Note ---
Date of Encounter: 10/27/16 Time of Encounter: 10:00 - Assessment and plan (1) Pulmonary embolism and infarction Current Visit: Yes Status: Acute Assessment and plan: CT angio shows acute PE with possible pulmonary infarct on the right side. - We will continue heparin drip for anticoagulation, patient has previous DVT, this is the second thrombus disease, pt may need lifelong anticoagulation. - CTA also suspect RV strain, Pt developed A Fib in ER, mild elevated BNP. Echo shows RV size and function are normal. Right now vital signs stable. Will continue anticoagulation and closely monitor patient. Patient is at high risk because she is on heparin drip, need close monitoring. (2) CKD (chronic kidney disease) stage 3, GFR 30-59 ml/min Current Visit: No Status: Chronic Assessment and plan: Patient has a history of CKD. Creatinine is about at her baseline. Normal saline hydration has been given after contrast use. Renal function has improved. (3) UTI (urinary tract infection) Current Visit: No Status: Acute Assessment and plan: Continue Rocephin treatment Qualifiers: Urinary tract infection type: site unspecified Hematuria presence: without hematuria Qualified Code(s): N39.0 - Urinary tract infection, site not specified (4) Afib Current Visit: Yes Status: Acute Assessment and plan: Patient has A. fib RVR in ER. Converts to sinus rhythm now. Will continue beta sagrario for rate control. 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 Qualifiers: Atrial fibrillation type: paroxysmal Qualified Code(s): I48.0 - Paroxysmal atrial fibrillation (5) Hypertension Current Visit: Yes Status: Chronic Assessment and plan: Continue home medication lisinopril and metoprolol. Add amlodipine today because BP is high. Qualifiers: Hypertension type: essential hypertension Qualified Code(s): I10 - Essential (primary) hypertension (6) Hyponatremia Current Visit: Yes Status: Acute Assessment and plan: Improved now. - Time Spent With Patient Greater than 35 minutes - Subjective Interval history: Patient is a 81-year-old female admitted for acute pulmonary embolism. She was also found A. fib with rapid ventricular response in ER. Past medical history is significant for DVT, hypertension, hyperlipidemia. She was seen and examined. Still complaint right-sided chest pain, which is a pleural pain, worsening on deep breath. Pain has improved today. Patient denies shortness of breath. Vitals are stable. Sinus rhythm now. Duplex LE shows left LE DVT. We will continue anticoagulation with heparin drip. Started coumadin. Continue closely monitoring PTT and INR. - Constitutional Vitals: Temp Pulse Resp BP Pulse Ox 97.8 F 96 14 198/90 94 10/27/16 16:00 10/27/16 16:00 10/27/16 16:00 10/27/16 16:00 10/27/16 16:00 General appearance: Present: cooperative, A&O X 3, no acute distress, answers questions appropriately - Head Head exam: Present: atraumatic, normocephalic - Eye Eye exam: Present: PERRL, conjuntiva pink, sclera anicteric Pupils: Present: PERRL - Neck Neck exam general surgery: Present: supple, trachea midline. Absent: lymphadenopathy - Respiratory Respiratory exam: Present: CTAB. Absent: accessory muscle use, rales, rhonchi, wheezes - Cardiovascular Cardiovascular exam: Present: RRR, +S1, +S2. Absent: diastolic murmur, gallop, rubs, systolic murmur - GI/Abdominal GI/Abdominal exam: Present: normal bowel sounds, soft, no peritoneal signs. Absent: distended, tenderness - Extremities Exam Extremities exam: Present: warm, radial pulses palpable and symetrical. Absent : calf tenderness, cyanotic, pedal edema - Neurological Exam Neurological exam: Present: CN II-XII intact, oriented X3, no focal deficits. Absent: pronater drift, facial droop, speech deficit - Skin Skin exam: Present: dry, intact Internal Medicine: Result - Labs CBC & Chem 7: 10/27/16 01:00 10/27/16 01:00 Labs: Short CBC 10/27/16 Range/Units 01:00 WBC 7.3 (4.3-11.1) K/mcL Hgb 10.5 L (11.5-15.4) g/dL Hct 33.7 L (35.3-44.9) % Plt Count 158 (140-400) K/mcL Neutrophils # 5.4 (1.6-8.9) K/mcL BMP 10/27/16 01:00 Sodium 133 L Potassium 4.5 Chloride 100 Carbon Dioxide 26 BUN 18 Creatinine 1.09 Glucose 91 Calcium 8.5 L - ABG Interpretation ABG results: PT/INR, D-dimer PT 14.6 Seconds (9.4-12.1) H 10/27/16 01:00 - VTE Documentation of Mechanical Device: Graduated compression elastic hosiery Consult Discharge Plan - Plan Referrals: Eduardo Wang MD [Primary Care Provider] - 11/02/16 9:45 am (PLEASE SHOW UP 15 MINUTES EARLY) Noel Lizama MD [Partnered Physician] - 11/02/16 2:15 pm
[2016-10-27] MEDS: amLODIPine 5 MG TABLET PO SCH (17:46)
[2016-10-27] MEDS: Ibuprofen 600 MG TABLET PO PRN (17:48)
[2016-10-27] MEDS ORDERED: *HR* Warfarin 5 MG TABLET PO ONE (18:00)
--- NOTE | 2016-10-27 20:15 | Venous Imaging Report ---
LE Venous Duplex Patient Name:Vivian Ruiz Order Number:[id number] Procedure Date:10/26/2016 Date:1935ge:81 yrs Gender:Female Location:[facility] Room #: 2N4 Returned Materials Inspector:Tavia Redman Referring MD:Waqar Hill MD dental treatment coordinator:Eduardo Wang MD Reading MD:Juan Carlos Montiel MD Primary Indications:r/o DVT Secondary Indications: Risk Factors Yes/No Hx of DVT Anticoagulants Impressions: Normal right lower extremity deep and superficial venous exam. Acute deep venous thrombosis is present in the left common femoral through popliteal veins. Acute superficial thrombosis is present in the left lesser saphenous vein. Recommendations: Test completed on 10/26/2016 at 9:54:00 pm. Critical findings reported to KAMALA Eckert in person at 9:55:00 pm on 10/26/2016 by Tavia Redman. Findings Venous Duplex Results: Right: There is reflux lasting 955.2 milliseconds in the right great saphenous. Left: There is an acute partially occlusive thrombus seen in the left common femoral. There is an acute occlusive thrombus seen in the left superficial femoral. There is an acute occlusive thrombus seen in the left popliteal. Lower Extremity Venous Duplex Side Vein Compress Spontaneous Flow Augment Diameter (cm) Depth (cm) Right Distal Iliac Normal Yes Phasic Yes Right Common Femoral Normal Yes Phasic Yes Right Superficial Femoral Normal Yes Phasic Yes Right Popliteal Normal Yes Phasic Yes Right Posterior Tibial Normal Yes Phasic Yes Right Peroneal Normal Yes Phasic Yes Right Saphenofemoral Junction Normal Yes Phasic Yes Right Great Saphenous Normal Yes Phasic Yes 0.56 0.49 Right Lesser Saphenous Normal Yes Phasic Yes Left Distal Iliac Normal Yes Phasic Yes Left Common Femoral Partial Yes Phasic Yes Left Superficial Femoral None no Absent no Left Popliteal None no Absent no Left Posterior Tibial Normal Yes Phasic Yes Left Peroneal Normal Yes Phasic Yes Left Saphenofemoral Junction Normal Yes Phasic Yes Left Great Saphenous Normal Yes Phasic Yes Left Lesser Saphenous None no Absent no Updated by Juan Carlos Montiel MD on 10/27/2016 8:08:50 PM electronically signed on 10/27/2016 8:09:52 PM with status of Final
[2016-10-28] MEDS: Ibuprofen 600 MG TABLET PO PRN (01:29)
[2016-10-28 06:11] LABS: Basophils % 0.4 %; Eosinophils # 0.2 K/mcL (0.0-0.6); Eosinophils % 3.2 %; Hematocrit 34.5 % (35.3-44.9); Hemoglobin 10.6 g/dL (11.5-15.4); Immature Granulocytes % 0.2 % (0-4); Lymphocytes # 0.9 K/mcL (0.6-4.6); Lymphocytes % 16.3 %; Mean Corpuscular HGB Conc 30.7 g/dL (31.6-35.5); Mean Corpuscular Hemoglobin 27.8 pg (28.0-33.3); Mean Corpuscular Volume 90.6 fL (83.0-100.0); Mean Platelet Volume 10.9 fL (9.4-12.4); Monocytes # 0.4 K/mcL (0.0-1.3); Monocytes % 6.9 %; Neutrophils # 4.1 K/mcL (1.6-8.9); Platelet Count 203 K/mcL (140-400); Red Blood Count 3.81 M/mcL (3.82-4.97); Red Cell Distribution Width 19.9 % (11.5-14.5)
[2016-10-28 06:19] LABS: INR 1.2
[2016-10-28 06:34] LABS: BUN/Creatinine Ratio 15 (6-26); Blood Urea Nitrogen 13 mg/dL (7-20); Calcium 8.5 mg/dL (8.6-10.8); Carbon Dioxide 26 mEq/L (19-29); Chloride 100 mEq/L (98-109); Glucose 95 mg/dL (70-99); Osmolality,Calculated 278 (280-300); Potassium 4.2 mEq/L (3.5-4.5); Sodium 134 mEq/L (136-145); eGFR For African Americans > 60 (> 60); eGFR For Non-African Americans > 60 (> 60)
[2016-10-28 07:50] LABS: Activated Partial Thrombo Time 63.1 Seconds (26.0-36.0)
[2016-10-28] MEDS: amLODIPine 5 MG TABLET PO SCH (08:31)
[2016-10-28] MEDS: Lisinopril 20 MG TABLET PO SCH ×2 (08:32→21:34)
[2016-10-28] MEDS: Heparin 25,000 UNIT/500 ML D5W 25,000 UNIT/500 ML MLS IVC SCH ×2 (09:36→19:48)
--- NOTE | 2016-10-28 11:42 | Internal Med Progress Note ---
Date of Encounter: 10/28/16 Time of Encounter: 09:00 - Assessment and plan (1) Pulmonary embolism and infarction Current Visit: Yes Status: Acute Assessment and plan: CT angio shows acute PE with possible pulmonary infarct on the right side. - We will continue heparin drip for anticoagulation, patient has previous DVT, this is the second thrombus disease, pt may need lifelong anticoagulation. - CTA also suspect RV strain, Pt developed A Fib in ER, mild elevated BNP. Echo shows RV size and function are normal. Right now vital signs stable. Will continue anticoagulation and closely monitor patient. Patient is at high risk because she is on heparin drip, need close monitoring. (2) CKD (chronic kidney disease) stage 3, GFR 30-59 ml/min Current Visit: No Status: Chronic Assessment and plan: Patient has a history of CKD. Creatinine is about at her baseline. Normal saline hydration has been given after contrast use. Renal function has improved. (3) UTI (urinary tract infection) Current Visit: No Status: Acute Assessment and plan: Continue Rocephin treatment to finish a 5 day course. pt has no symptoms. Qualifiers: Urinary tract infection type: site unspecified Hematuria presence: without hematuria Qualified Code(s): N39.0 - Urinary tract infection, site not specified (4) Afib Current Visit: Yes Status: Acute Assessment and plan: Patient has A. fib RVR in ER. Converts to sinus rhythm now. Will continue beta sagrario for rate control. 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 Qualifiers: Atrial fibrillation type: paroxysmal Qualified Code(s): I48.0 - Paroxysmal atrial fibrillation (5) Hypertension Current Visit: Yes Status: Chronic Assessment and plan: Continue home medication lisinopril and metoprolol. Add amlodipine and increase metoprolol from 25mg bid to 50mg bid because BP is high. Qualifiers: Hypertension type: essential hypertension Qualified Code(s): I10 - Essential (primary) hypertension (6) Hyponatremia Current Visit: Yes Status: Acute Assessment and plan: Improved now. - Time Spent With Patient Greater than 35 minutes - Subjective Interval history: Patient is a 81-year-old female admitted for acute pulmonary embolism. She was also found A. fib with rapid ventricular response in ER. Past medical history is significant for DVT, hypertension, hyperlipidemia. She was seen and examined. Still complaint right-sided chest pain, which is a pleural pain, worsening on deep breath. Pain can be controlled by Tylenol. Patient denies shortness of breath. Vitals are stable. Keep on Sinus rhythm. Duplex LE shows left LE DVT. We will continue anticoagulation with heparin drip. Started coumadin. Continue closely monitoring PTT and INR. - Constitutional Vitals: Temp Pulse Resp BP Pulse Ox 98.1 F 88 18 171/75 94 10/28/16 11:24 10/28/16 11:24 10/28/16 11:24 10/28/16 11:24 10/28/16 11:24 General appearance: Present: cooperative, A&O X 3, no acute distress, answers questions appropriately - Head Head exam: Present: atraumatic, normocephalic - Eye Eye exam: Present: PERRL, conjuntiva pink, sclera anicteric Pupils: Present: PERRL - Neck Neck exam general surgery: Present: supple, trachea midline. Absent: lymphadenopathy - Respiratory Respiratory exam: Present: CTAB. Absent: accessory muscle use, rales, rhonchi, wheezes - Cardiovascular Cardiovascular exam: Present: RRR, +S1, +S2. Absent: diastolic murmur, gallop, rubs, systolic murmur - GI/Abdominal GI/Abdominal exam: Present: normal bowel sounds, soft, no peritoneal signs. Absent: distended, tenderness - Extremities Exam Extremities exam: Present: warm, radial pulses palpable and symetrical. Absent : calf tenderness, cyanotic, pedal edema - Neurological Exam Neurological exam: Present: CN II-XII intact, oriented X3, no focal deficits. Absent: pronater drift, facial droop, speech deficit - Skin Skin exam: Present: dry, intact Internal Medicine: Result - Labs CBC & Chem 7: 10/28/16 05:30 10/28/16 05:30 Labs: Short CBC 10/28/16 Range/Units 05:30 WBC 5.6 (4.3-11.1) K/mcL Hgb 10.6 L (11.5-15.4) g/dL Hct 34.5 L (35.3-44.9) % Plt Count 203 (140-400) K/mcL Neutrophils # 4.1 (1.6-8.9) K/mcL BMP 10/28/16 05:30 Sodium 134 L Potassium 4.2 Chloride 100 Carbon Dioxide 26 BUN 13 Creatinine 0.87 Glucose 95 Calcium 8.5 L - ABG Interpretation ABG results: PT/INR, D-dimer PT 13.0 Seconds (9.4-12.1) H 10/28/16 05:30 - VTE Documentation of Mechanical Device: Graduated compression elastic hosiery Consult Discharge Plan - Plan Referrals: Eduardo Wang MD [Primary Care Provider] - 11/02/16 9:45 am (PLEASE SHOW UP 15 MINUTES EARLY) Noel Lizama MD [Partnered Physician] - 11/02/16 2:15 pm
[2016-10-28] MEDS: Acetaminophen 325 MG TABLET PO PRN ×2 (12:19→18:25)
[2016-10-28] MEDS ORDERED: *HR* Warfarin 5 MG TABLET PO ONE (18:00)
[2016-10-28] MEDS: ALPRAZolam 0.25 MG TABLET PO SCH (21:34)
[2016-10-29 04:37] LABS: Basophils % 0.2 %; Eosinophils # 0.1 K/mcL (0.0-0.6); Eosinophils % 1.5 %; Hematocrit 34.6 % (35.3-44.9); Hemoglobin 10.9 g/dL (11.5-15.4); Immature Granulocytes % 0.4 % (0-4); Lymphocytes # 0.8 K/mcL (0.6-4.6); Mean Corpuscular HGB Conc 31.5 g/dL (31.6-35.5); Mean Corpuscular Hemoglobin 27.7 pg (28.0-33.3); Mean Corpuscular Volume 87.8 fL (83.0-100.0); Mean Platelet Volume 10.3 fL (9.4-12.4); Monocytes # 0.3 K/mcL (0.0-1.3); Monocytes % 6.3 %; Neutrophils # 4.2 K/mcL (1.6-8.9); Platelet Count 225 K/mcL (140-400); Red Blood Count 3.94 M/mcL (3.82-4.97); Red Cell Distribution Width 19.7 % (11.5-14.5); Segmented Neutrophils % 77.6 %
[2016-10-29 04:41] LABS: INR 1.5; Prothrombin Time 15.9 Seconds (9.4-12.1)
[2016-10-29 04:49] LABS: BUN/Creatinine Ratio 12 (6-26); Blood Urea Nitrogen 9 mg/dL (7-20); Calcium 8.7 mg/dL (8.6-10.8); Carbon Dioxide 27 mEq/L (19-29); Chloride 96 mEq/L (98-109); Glucose 117 mg/dL (70-99); Osmolality,Calculated 272 (280-300); Potassium 4.2 mEq/L (3.5-4.5); Sodium 131 mEq/L (136-145); eGFR For African Americans > 60 (> 60); eGFR For Non-African Americans > 60 (> 60)
[2016-10-29] MEDS: Ondansetron 4 MG/2 ML VIAL IVP PRN ×2 (05:23→16:21)
[2016-10-29] MEDS: Lisinopril 20 MG TABLET PO SCH ×2 (09:13→21:39)
[2016-10-29] MEDS: amLODIPine 5 MG TABLET PO SCH (09:14)
[2016-10-29] MEDS: Acetaminophen 325 MG TABLET PO PRN (09:36)
--- NOTE | 2016-10-29 12:58 | Internal Med Progress Note ---
Date of Encounter: 10/29/16 Time of Encounter: 09:00 - Assessment and plan (1) Pulmonary embolism and infarction Current Visit: Yes Status: Acute Assessment and plan: CT angio shows acute PE with possible pulmonary infarct on the right side. - We will continue heparin drip for anticoagulation, patient has previous DVT, this is the second thrombus disease, pt may need lifelong anticoagulation. - CTA also suspect RV strain, Pt developed A Fib in ER, mild elevated BNP. Echo shows RV size and function are normal. Right now vital signs stable. Will continue anticoagulation and closely monitor patient. Patient is at high risk because she is on heparin drip, need close monitoring. (2) CKD (chronic kidney disease) stage 3, GFR 30-59 ml/min Current Visit: No Status: Chronic Assessment and plan: Patient has a history of CKD. Creatinine is about at her baseline. Normal saline hydration has been given after contrast use. Renal function has improved. (3) UTI (urinary tract infection) Current Visit: No Status: Acute Assessment and plan: Continue Rocephin treatment to finish a 5 day course. pt has no symptoms. Qualifiers: Urinary tract infection type: site unspecified Hematuria presence: without hematuria Qualified Code(s): N39.0 - Urinary tract infection, site not specified (4) Afib Current Visit: Yes Status: Acute Assessment and plan: Patient has A. fib RVR in ER. Converts to sinus rhythm now. Will continue beta sagrario for rate control. 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 Qualifiers: Atrial fibrillation type: paroxysmal Qualified Code(s): I48.0 - Paroxysmal atrial fibrillation (5) Hypertension Current Visit: Yes Status: Chronic Assessment and plan: Continue home medication lisinopril. Add amlodipine, change metoprolol to labetalol now, BP is controlled now.. Qualifiers: Hypertension type: essential hypertension Qualified Code(s): I10 - Essential (primary) hypertension (6) Hyponatremia Current Visit: Yes Status: Acute Assessment and plan: Improved now. (7) Venous thrombosis Current Visit: No Status: Acute Assessment and plan: US shows left side DVT, pt is on full anticoagulation. - Time Spent With Patient Greater than 35 minutes - Subjective Interval history: Patient is a 81-year-old female admitted for acute pulmonary embolism. She was also found A. fib with rapid ventricular response in ER. Past medical history is significant for DVT, hypertension, hyperlipidemia. She was seen and examined. Right side pleural pain resolved. Patient denies shortness of breath. Vitals are stable. Keep on Sinus rhythm. BP is high, change metoprolol to labetalol. We will continue anticoagulation with heparin drip and coumadin. Continue closely monitoring PTT and INR. - Constitutional Vitals: Temp Pulse Resp BP Pulse Ox 97.9 F 85 16 122/57 93 10/29/16 10:55 10/29/16 10:55 10/29/16 12:00 10/29/16 10:55 10/29/16 12:00 General appearance: Present: cooperative, A&O X 3, no acute distress, answers questions appropriately - Head Head exam: Present: atraumatic, normocephalic - Eye Eye exam: Present: PERRL, conjuntiva pink, sclera anicteric Pupils: Present: PERRL - Neck Neck exam general surgery: Present: supple, trachea midline. Absent: lymphadenopathy - Respiratory Respiratory exam: Present: CTAB. Absent: accessory muscle use, rales, rhonchi, wheezes - Cardiovascular Cardiovascular exam: Present: RRR, +S1, +S2. Absent: diastolic murmur, gallop, rubs, systolic murmur - GI/Abdominal GI/Abdominal exam: Present: normal bowel sounds, soft, no peritoneal signs. Absent: distended, tenderness - Extremities Exam Extremities exam: Present: warm, radial pulses palpable and symetrical. Absent : calf tenderness, cyanotic, pedal edema - Neurological Exam Neurological exam: Present: CN II-XII intact, oriented X3, no focal deficits. Absent: pronater drift, facial droop, speech deficit - Skin Skin exam: Present: dry, intact Internal Medicine: Result - Labs CBC & Chem 7: 10/29/16 04:15 10/29/16 04:15 Labs: Short CBC 10/29/16 Range/Units 04:15 WBC 5.4 (4.3-11.1) K/mcL Hgb 10.9 L (11.5-15.4) g/dL Hct 34.6 L (35.3-44.9) % Plt Count 225 (140-400) K/mcL Neutrophils # 4.2 (1.6-8.9) K/mcL BMP 10/29/16 04:15 Sodium 131 L Potassium 4.2 Chloride 96 L Carbon Dioxide 27 BUN 9 Creatinine 0.73 Glucose 117 H Calcium 8.7 - ABG Interpretation ABG results: PT/INR, D-dimer PT 15.9 Seconds (9.4-12.1) H 10/29/16 04:15 - VTE Documentation of Mechanical Device: Graduated compression elastic hosiery Consult Discharge Plan - Plan Referrals: Eduardo Wang MD [Primary Care Provider] - 11/02/16 9:45 am (PLEASE SHOW UP 15 MINUTES EARLY) Noel Lizama MD [Partnered Physician] - 11/02/16 2:15 pm
[2016-10-29] MEDS ORDERED: *HR* Warfarin 5 MG TABLET PO ONE (18:00)
[2016-10-29] MEDS: Heparin 25,000 UNIT/500 ML D5W 25,000 UNIT/500 ML MLS IVC SCH (18:37)
[2016-10-29] MEDS: ALPRAZolam 0.25 MG TABLET PO SCH (21:39)
[2016-10-30] MEDS: Heparin 25,000 UNIT/500 ML D5W 25,000 UNIT/500 ML MLS IVC SCH ×3 (00:15→23:52)
[2016-10-30 04:43] LABS: Basophils % 0.2 %; Eosinophils # 0.1 K/mcL (0.0-0.6); Eosinophils % 2.6 %; Immature Granulocytes % 0.2 % (0-4); Lymphocytes # 0.8 K/mcL (0.6-4.6); Lymphocytes % 18.9 %; Mean Corpuscular HGB Conc 30.3 g/dL (31.6-35.5); Mean Corpuscular Hemoglobin 27.2 pg (28.0-33.3); Mean Corpuscular Volume 89.7 fL (83.0-100.0); Mean Platelet Volume 10.3 fL (9.4-12.4); Monocytes # 0.3 K/mcL (0.0-1.3); Monocytes % 7.5 %; Platelet Count 220 K/mcL (140-400); Red Blood Count 3.68 M/mcL (3.82-4.97); Red Cell Distribution Width 19.7 % (11.5-14.5); Segmented Neutrophils % 70.6 %
[2016-10-30 05:01] LABS: Calcium 8.4 mg/dL (8.6-10.8); Potassium 4.5 mEq/L (3.5-4.5)
[2016-10-30] MEDS: Lisinopril 20 MG TABLET PO SCH ×2 (08:51→21:42)
[2016-10-30] MEDS: amLODIPine 5 MG TABLET PO SCH (08:51)
[2016-10-30 11:04] LABS: INR 2.2
[2016-10-30 11:18] LABS: Prothrombin Time 24.2 Seconds (9.4-12.1)
--- NOTE | 2016-10-30 13:38 | Internal Med Progress Note ---
Date of Encounter: 10/30/16 Time of Encounter: 09:00 - Assessment and plan (1) Pulmonary embolism and infarction Current Visit: Yes Status: Acute Assessment and plan: CT angio shows acute PE with possible pulmonary infarct on the right side. - We will continue heparin drip for anticoagulation, patient has previous DVT, this is the second thrombus disease, pt may need lifelong anticoagulation. - CTA also suspect RV strain, Pt developed A Fib in ER, mild elevated BNP. Echo shows RV size and function are normal. Right now vital signs stable. Will continue anticoagulation and closely monitor patient. Patient is at high risk because she is on heparin drip, need close monitoring. (2) CKD (chronic kidney disease) stage 3, GFR 30-59 ml/min Current Visit: No Status: Chronic Assessment and plan: Patient has a history of CKD. Creatinine is about at her baseline. Normal saline hydration has been given after contrast use. Renal function has improved. (3) UTI (urinary tract infection) Current Visit: No Status: Acute Assessment and plan: Continue Rocephin treatment to finish a 5 day course, will DC antibiotic today. pt has no symptoms. Qualifiers: Urinary tract infection type: site unspecified Hematuria presence: without hematuria Qualified Code(s): N39.0 - Urinary tract infection, site not specified (4) Afib Current Visit: Yes Status: Acute Assessment and plan: Patient has A. fib RVR in ER. Converts to sinus rhythm now. Most likely due to acute PE. Will continue beta sagrario for rate control. 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 Qualifiers: Atrial fibrillation type: paroxysmal Qualified Code(s): I48.0 - Paroxysmal atrial fibrillation (5) Hypertension Current Visit: Yes Status: Chronic Assessment and plan: Continue home medication lisinopril. Add amlodipine, change metoprolol to labetalol now, BP is controlled now.. Qualifiers: Hypertension type: essential hypertension Qualified Code(s): I10 - Essential (primary) hypertension (6) Hyponatremia Current Visit: Yes Status: Acute Assessment and plan: Will change cardiac diet to regular diet as hypertension has been controlled. Follow-up sodium level (7) Venous thrombosis Current Visit: No Status: Acute Assessment and plan: US shows left LE DVT, pt is on full anticoagulation. - Time Spent With Patient Greater than 35 minutes - Subjective Interval history: Patient is a 81-year-old female admitted for acute pulmonary embolism. She was also found A. fib with rapid ventricular response in ER. Past medical history is significant for DVT, hypertension, hyperlipidemia. She was seen and examined. Right side pleural pain resolved. Patient denies shortness of breath. Vitals are stable. Keep on Sinus rhythm. BP is stable after changing metoprolol to labetalol. We will continue anticoagulation with heparin drip and coumadin. Continue closely monitoring PTT and INR. Today INR 2.2, will D/C heparin if tomorrow INR still therapeutic (INR therapeutic for two successive days). - Constitutional Vitals: Temp Pulse Resp BP Pulse Ox 98.2 F 76 18 124/58 97 10/30/16 12:07 10/30/16 12:10/30/16 12:07 10/30/16 12:10/30/16 12:07 General appearance: Present: cooperative, A&O X 3, no acute distress, answers questions appropriately - Head Head exam: Present: atraumatic, normocephalic - Eye Eye exam: Present: PERRL, conjuntiva pink, sclera anicteric Pupils: Present: PERRL - Neck Neck exam general surgery: Present: supple, trachea midline. Absent: lymphadenopathy - Respiratory Respiratory exam: Present: CTAB. Absent: accessory muscle use, rales, rhonchi, wheezes - Cardiovascular Cardiovascular exam: Present: RRR, +S1, +S2. Absent: diastolic murmur, gallop, rubs, systolic murmur - GI/Abdominal GI/Abdominal exam: Present: normal bowel sounds, soft, no peritoneal signs. Absent: distended, tenderness - Extremities Exam Extremities exam: Present: warm, radial pulses palpable and symetrical. Absent : calf tenderness, cyanotic, pedal edema - Neurological Exam Neurological exam: Present: CN II-XII intact, oriented X3, no focal deficits. Absent: pronater drift, facial droop, speech deficit - Skin Skin exam: Present: dry, intact Internal Medicine: Result - Labs CBC & Chem 7: 10/30/16 04:20 10/30/16 04:20 Labs: Short CBC 10/30/16 Range/Units 04:20 WBC 4.2 L (4.3-11.1) K/mcL Hgb 10.0 L (11.5-15.4) g/dL Hct 33.0 L (35.3-44.9) % Plt Count 220 (140-400) K/mcL Neutrophils # 3.0 (1.6-8.9) K/mcL BMP 10/30/16 04:20 Sodium 130 L Potassium 4.5 Chloride 94 L Carbon Dioxide 28 BUN 12 Creatinine 1.08 Glucose 107 H Calcium 8.4 L - ABG Interpretation ABG results: PT/INR, D-dimer PT 24.2 Seconds (9.4-12.1) H D 10/30/16 10:35 - VTE Documentation of Mechanical Device: Graduated compression elastic hosiery Consult Discharge Plan - Plan Referrals: Eduardo Wang MD [Primary Care Provider] - 11/02/16 9:45 am (PLEASE SHOW UP 15 MINUTES EARLY) Noel Lizama MD [Partnered Physician] - 11/02/16 2:15 pm
[2016-10-30] MEDS ORDERED: *HR* Warfarin 2.5 MG TABLET PO ONE (18:00)
[2016-10-30] MEDS: ALPRAZolam 0.25 MG TABLET PO SCH (21:42)
[2016-10-31 05:18] LABS: Basophils % 0.4 %; Eosinophils # 0.2 K/mcL (0.0-0.6); Eosinophils % 3.6 %; Hematocrit 31.6 % (35.3-44.9); Hemoglobin 9.4 g/dL (11.5-15.4); Immature Granulocytes % 0.2 % (0-4); Lymphocytes # 0.8 K/mcL (0.6-4.6); Lymphocytes % 17.3 %; Mean Corpuscular HGB Conc 29.7 g/dL (31.6-35.5); Mean Corpuscular Hemoglobin 26.9 pg (28.0-33.3); Mean Corpuscular Volume 90.3 fL (83.0-100.0); Mean Platelet Volume 10.5 fL (9.4-12.4); Monocytes # 0.4 K/mcL (0.0-1.3); Monocytes % 7.8 %; Neutrophils # 3.2 K/mcL (1.6-8.9); Platelet Count 223 K/mcL (140-400); Red Cell Distribution Width 19.9 % (11.5-14.5); Segmented Neutrophils % 70.7 %
[2016-10-31 05:39] LABS: INR 2.2
[2016-10-31 05:45] LABS: Calcium 8.3 mg/dL (8.6-10.8); Potassium 5.2 mEq/L (3.5-4.5)
[2016-10-31] MEDS: Lisinopril 20 MG TABLET PO SCH (08:23)
[2016-10-31] MEDS: amLODIPine 5 MG TABLET PO SCH (08:23)
[2016-10-31] MEDS ORDERED: 0.9 % Sodium Chloride 500 ML IVC ONE (15:11)
--- NOTE | 2016-10-31 15:18 | Internal Med Progress Note ---
Date of Encounter: 10/31/16 Time of Encounter: 15:11 - Assessment and plan (1) Acute respiratory failure with hypoxia Current Visit: Yes Status: Acute Assessment and plan: Continue O2 supplements Will discharge home with O2 (2) Venous thrombosis Current Visit: Yes Status: Acute Assessment and plan: US shows left LE DVT, pt is on full anticoagulation. (3) CKD (chronic kidney disease) stage 3, GFR 30-59 ml/min Current Visit: No Status: Chronic Assessment and plan: Patient has a history of CKD. Creatinine and GFR baseline but slight increase in Cr this a.m IVF hydration Hold Lisinopril Recheck a.m (4) UTI (urinary tract infection) Current Visit: No Status: Acute Assessment and plan: Course of antibiotic completed Qualifiers: Urinary tract infection type: site unspecified Hematuria presence: without hematuria Qualified Code(s): N39.0 - Urinary tract infection, site not specified (5) Afib Current Visit: Yes Status: Acute Assessment and plan: Patient has A. fib RVR in ER. Converts to sinus rhythm now. Most likely due to acute PE. Will continue beta sagrario for rate control. 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 Qualifiers: Atrial fibrillation type: paroxysmal Qualified Code(s): I48.0 - Paroxysmal atrial fibrillation (6) Pulmonary embolism and infarction Current Visit: Yes Status: Acute Assessment and plan: Acute sub-segmental PE , unprovoked, without R heart strain CT angio shows acute PE with possible pulmonary infarct on the right side. - We will continue heparin drip for anticoagulation, patient has previous DVT, this is the second thrombus disease, pt may need lifelong anticoagulation. - CTA also suspect RV strain, Pt developed A Fib in ER, mild elevated BNP. Echo shows RV size and function are normal. Continue coumadin, d/c heparin (7) Hypertension Current Visit: Yes Status: Chronic Assessment and plan: Controlled, hold Lisinopril, may restart at lower dose prior to discharge Continue labetalol and Norvasc Qualifiers: Hypertension type: essential hypertension Qualified Code(s): I10 - Essential (primary) hypertension (8) Hyponatremia Current Visit: Yes Status: Chronic Assessment and plan: Chronic, dates back to 2013 Stable - Subjective Interval history: Seen and evaluated at the bedside 81 Y/O F being managed for Acute hypoxemic respiratory failure secondary to PE, UTI and Afib with RVR She has a PMH of HTN, INR is therapeutic labs today with slighlty elevated Cr and potassium, repeat K at 2p.m 4.8 Will give 500cc bolus and hold lisinopril, repeat Chem a.m and for possible discharge a.m She qualified for home O2 - Constitutional Vitals: Temp Pulse Resp BP Pulse Ox 98.9 F 83 22 127/70 95 10/31/16 08:15 10/31/16 08:15 10/31/16 08:15 10/31/16 08:15 10/31/16 11:00 General appearance: Present: cooperative, A&O X 3, no acute distress, obese, answers questions appropriately - Head Head exam: Present: atraumatic, normocephalic - Eye Eye exam: Present: PERRL, conjuntiva pink, sclera anicteric Pupils: Present: PERRL - Neck Neck exam general surgery: Present: supple, trachea midline. Absent: lymphadenopathy - Respiratory Respiratory exam: Present: CTAB. Absent: accessory muscle use, rales, rhonchi, wheezes - Cardiovascular Cardiovascular exam: Present: RRR, +S1, +S2. Absent: diastolic murmur, gallop, rubs, systolic murmur - GI/Abdominal GI/Abdominal exam: Present: normal bowel sounds, soft, no peritoneal signs. Absent: distended, tenderness - Extremities Exam Extremities exam: Present: warm, radial pulses palpable and symetrical. Absent : calf tenderness, cyanotic, pedal edema - Neurological Exam Neurological exam: Present: alert, CN II-XII intact, oriented X3, no focal deficits. Absent: pronater drift, facial droop, speech deficit - Skin Skin exam: Present: dry, intact Internal Medicine: Result - Labs CBC & Chem 7: 10/31/16 04:45 10/31/16 14:00 Labs: Short CBC 10/31/16 Range/Units 04:45 WBC 4.5 (4.3-11.1) K/mcL Hgb 9.4 L (11.5-15.4) g/dL Hct 31.6 L (35.3-44.9) % Plt Count 223 (140-400) K/mcL Neutrophils # 3.2 (1.6-8.9) K/mcL BMP 10/31/16 10/31/16 04:45 14:00 Sodium 130 L Potassium 5.2 H 4.8 H Chloride 95 L Carbon Dioxide 27 BUN 17 Creatinine 1.26 H Glucose 101 H Calcium 8.3 L - ABG Interpretation ABG results: PT/INR, D-dimer PT 24.0 Seconds (9.4-12.1) H 10/31/16 05:20 - VTE Documentation of Mechanical Device: Graduated compression elastic hosiery Consult Discharge Plan - Plan Referrals: Eduardo Wang MD [Primary Care Provider] - 11/02/16 9:45 am (PLEASE SHOW UP 15 MINUTES EARLY) Noel Lizama MD [Partnered Physician] - 11/02/16 2:15 pm
[2016-10-31] MEDS ORDERED: *HR* Warfarin 3 MG TABLET PO ONE (18:00)
[2016-10-31] MEDS: ALPRAZolam 0.25 MG TABLET PO SCH (22:06)
[2016-11-01 05:12] LABS: Prothrombin Time 22.5 Seconds (9.4-12.1)
[2016-11-01 05:14] LABS: Activated Partial Thrombo Time 32.9 Seconds (26.0-36.0)
[2016-11-01 05:15] LABS: Potassium 4.9 mEq/L (3.5-4.5)
[2016-11-01] MEDS: amLODIPine 5 MG TABLET PO SCH (09:58)
--- NOTE | 2016-11-01 11:07 | Physician Discharge Referral ---
Home Health/Hosp Referral Info Transfer to: Home Health Attending Provider: Dr. Cline Provider in Charge Post Discharge: PCP - Diagnosis (1) Acute respiratory failure with hypoxia Priority: Primary Status: Acute (2) Venous thrombosis Priority: Primary Status: Acute (3) CKD (chronic kidney disease) stage 3, GFR 30-59 ml/min Priority: Secondary Status: Chronic (4) UTI (urinary tract infection) Priority: Primary Status: Inactive (5) Afib Priority: Primary Status: Acute (6) Pulmonary embolism and infarction Priority: Primary Status: Acute (7) Hypertension Priority: Secondary Status: Chronic (8) Hyponatremia Priority: Secondary Status: Chronic - Respiratory Orders Oxygen / L per min (2-3 L per minute to achieve O2sat of 90% at least) Smoking Cessation: Smoking cessation has been advised. For more information, call the [employer] Tobacco Quit Line at 9-559-HCGQ-NOW. - Diet/Nutrition Diet/Nutrition Orders: Cardiac - Activity Activity Orders: Up ad roshan - Services Needed Following services are medically necessary services: Nursing (Kindly check INR Friday 11/03. Kindly check Chem in one week and report to patient's PCP), Home Health Aide, Physical Therapy, Occupational Therapy - Transfer Medications Prescriptions: Amlodipine Besylate 10 mg PO DAILY #30 tablet Labetalol HCl 200 mg PO BID #60 tablet Warfarin [Coumadin] 3 mg PO 1800 #5 tablet Home Medications: Metoprolol [Lopressor] 25 mg PO BID 07/20/15 [History] Ferrous Sulfate [Iron] 325 mg PO QAM 10/24/16 [History] HYDROcodone/Acet 5/325 mg [[place] 5-325 mg] 1 tab PO Q6H #10 tab 10/24/16 [Rx] Alprazolam [Xanax 0.25 MG Tablet] 0.25 mg PO HS 10/25/16 [History] Nystatin Cream [Mycostatin Cream] 1 appl TP BID PRN 10/25/16 [History] Omeprazole [PriLOSEC] 20 mg PO DAILY PRN 10/25/16 [History] Trolamine Salicylate [Myoflex] 1 appl TP QID PRN 10/25/16 [History] Amlodipine Besylate 10 mg PO DAILY #30 tablet 11/01/16 [Rx] Labetalol HCl 200 mg PO BID #60 tablet 11/01/16 [Rx] Warfarin [Coumadin] 3 mg PO 1800 #5 tablet 11/01/16 [Rx] Allergies/Adverse Reactions: Allergies aspirin Adverse Reaction (Verified 10/24/16 03:28) Nose Bleed TAPE Adverse Reaction (Uncoded 10/24/16 03:28) Itching Certification: Further, I certify that my clinical findings support that this patient is homebound (i.e. absences from home require considerable and taxing effort and are for medical reasons or congregation services or infrequently or short duration when for other reasons) because: Homebound Reason: Patient requires assistance of a person or device to safely leave home Attestation: My signature below is to certify that this patient is under my care and that I, or nurse practitioner, or a physician's transition assistant working with me, has a face-to -face encounter with this patient.
--- NOTE | 2016-11-01 11:11 | Discharge Summary ---
Date of Encounter: 11/01/16 Time of Encounter: 11:10 - Discharge Diagnosis (1) Acute respiratory failure with hypoxia Priority: Primary Status: Acute Comments: Continue O2 at home PCP re-evaluation for need in the future (2) Venous thrombosis Priority: Primary Status: Acute Comments: As in PE (3) CKD (chronic kidney disease) stage 3, GFR 30-59 ml/min Priority: Secondary Status: Chronic Comments: Cr was stable Patient's Cr ranges from 1.0-1.6 in the past She had an episode of hyperkalemia and Lisnopril has been discontinued Follow up with PCP for monitoring (4) UTI (urinary tract infection) Priority: Primary Status: Inactive Comments: She completed the antibiotic course Qualifiers: Urinary tract infection type: site unspecified Hematuria presence: without hematuria Qualified Code(s): N39.0 - Urinary tract infection, site not specified (5) Afib Priority: Primary Status: Acute Comments: Newly diagnosed Heart rate is controlled She is on Coumadin for PE, which will be lifelong Qualifiers: Atrial fibrillation type: paroxysmal Qualified Code(s): I48.0 - Paroxysmal atrial fibrillation (6) Pulmonary embolism and infarction Priority: Primary Status: Acute Comments: CT angio shows acute PE with possible pulmonary infarct on the right side. Duplex LE shows left LE DVT. She received heparin drip for anticoagulation, and bridged to Coumadin IR hs been therapeutic for the past 3 days CTA also suspected RV strain, however, Echo showed RV size and function are normal Discharged on 3mg Coumadin with Home RN to check INR in 2-3 days Follow up with PCP for INR monitoring and Coumadin adjustments (7) Hypertension Priority: Primary Status: Chronic Comments: Patient has been started on amlodipine and labetalol Lisinopril discontinued due to recurrent hyperkalemia Qualifiers: Hypertension type: essential hypertension Qualified Code(s): I10 - Essential (primary) hypertension (8) Hyponatremia Priority: Secondary Status: Chronic Comments: Chronic, stable - Discharge Medications Prescriptions: Amlodipine Besylate 10 mg PO DAILY #30 tablet Labetalol HCl 200 mg PO BID #60 tablet Warfarin [Coumadin] 3 mg PO 1800 #5 tablet Home Medications: Metoprolol [Lopressor] 25 mg PO BID 07/20/15 [History] Ferrous Sulfate [Iron] 325 mg PO QAM 10/24/16 [History] HYDROcodone/Acet 5/325 mg [[place] 5-325 mg] 1 tab PO Q6H #10 tab 10/24/16 [Rx] Alprazolam [Xanax 0.25 MG Tablet] 0.25 mg PO HS 10/25/16 [History] Nystatin Cream [Mycostatin Cream] 1 appl TP BID PRN 10/25/16 [History] Omeprazole [PriLOSEC] 20 mg PO DAILY PRN 10/25/16 [History] Trolamine Salicylate [Myoflex] 1 appl TP QID PRN 10/25/16 [History] Amlodipine Besylate 10 mg PO DAILY #30 tablet 11/01/16 [Rx] Labetalol HCl 200 mg PO BID #60 tablet 11/01/16 [Rx] Warfarin [Coumadin] 3 mg PO 1800 #5 tablet 11/01/16 [Rx] Allergies/Adverse Reactions: Allergies aspirin Adverse Reaction (Verified 10/24/16 03:28) Nose Bleed TAPE Adverse Reaction (Uncoded 10/24/16 03:28) Itching Date of admission: 10/26/16 13:26 Primary care physician: Eduardo Wang MD Consults: 10/27/16 14:10 Consult to Invasive Line Access Team [CONS] Routine Reason for Consult: LIMITED IV ACCESS Line Type: EPIV 10/28/16 09:36 Consult to Occupational Therapy [CONS] Routine Comment: Evaluate, develop and implement POC Consult to Physical Therapy [CONS] Routine Comment: Evaluate, develop and implement POC Discharging clinician: Gordon Cline Anticipated date of discharge: 11/01/16 - Patient Status Disposition: Home Health Service Condition: Good Functional capacity at discharge: independent ambulation Overall status at discharge: patient is back to baseline - Discharge Instructions Instructions: Labetalol (By mouth), Warfarin (By mouth), Amlodipine (By mouth) , Atrial Fibrillation (DC), Pulmonary Embolism (DC), Cigarette Smoking and Your Health (GEN) Follow Up With: Eduardo Wang MD [Primary Care Provider] - 11/02/16 9:45 am (PLEASE SHOW UP 15 MINUTES EARLY) Noel Lizama MD [Partnered Physician] - 11/02/16 2:15 pm Additional Instructions: -HOME HEALTH TO CHECK INR AND CHEMISTRY ON Sunday11-03-16 AND FAX RESULTS TO PATIENTS PCP. -TAKE MEDS DIRECTED. -CARDIAC DIET IS RECOMMENDED. -IF YOU SMOKE, IT IS ADVIXED THAT YOU STOP. -OXYGEN AT 2-3 LITERS FOR SPO2>90% - Diet and Activity Activity: resume usual activities as tolerated, wear oxygen at all times Diet: low fat, low cholesterol, low salt diet Interval History: See below Hospital course: Ms. Ruiz is a 81 year old female She has a PMH of HTN, CKD III She was admitted and managed for acute hypoxic respirator failure secondary to acute sub-segmental unprovoked Pulmonary embolism without R heart strain, DVT, Newly diagnosed Atrial fibrillation She also had uncontrolled HTN during admission, warranting adjustments of her antihypertensives She is seen this morning, without distress, and is stale for discharge Rest of details as in each diagnoses - Time Spent with Patient Total time spent providing and/or coordinating discharge services: Greater than 30 minutes (45 minutes spent on chart review, medication reconciliation, prescriptions, patient encounter and documentation of findings) - Constitutional Vitals: Temp Pulse Resp BP Pulse Ox 98.1 F 81 18 140/66 94 11/01/16 10:00 11/01/16 10:00 11/01/16 10:00 11/01/16 10:11/01/16 10:00 General appearance: Present: cooperative, A&O X 3, no acute distress, obese, answers questions appropriately - Head Head exam: Present: atraumatic, normocephalic - Eye Eye exam: Present: PERRL, conjuntiva pink, sclera anicteric Pupils: Present: PERRL - Neck Neck exam general surgery: Present: supple, trachea midline. Absent: lymphadenopathy - Respiratory Respiratory exam: Present: CTAB. Absent: accessory muscle use, rales, rhonchi, wheezes - Cardiovascular Cardiovascular exam: Present: RRR, +S1, +S2. Absent: diastolic murmur, gallop, rubs, systolic murmur - GI/Abdominal GI/Abdominal exam: Present: normal bowel sounds, soft, no peritoneal signs. Absent: distended, tenderness - Extremities Exam Extremities exam: Present: warm, radial pulses palpable and symetrical. Absent : calf tenderness, cyanotic, pedal edema - Neurological Exam Neurological exam: Present: alert, CN II-XII intact, normal gait, oriented X3, no focal deficits. Absent: pronater drift, facial droop, speech deficit - Skin Skin exam: Present: dry, intact - VTE Documentation of Mechanical Device: Graduated compression elastic hosiery
[2016-11-01 11:27] VITALS: BP 139/73
[2016-11-01] MEDS: Acetaminophen 325 MG TABLET PO PRN (12:08)
[2016-11-01] MEDS ORDERED: *HR* Warfarin 4 MG TABLET PO ONE (18:00)
== END 2016-11-01 15:13 | disposition home health service (06) | DRG 175 ==
LOC: EMEROO 17:33 → 2NNU 17:33 → SUATTDRO 10-26 13:26
PROVIDERS: ADMIT Internal Medicine; ATTEND Internal Medicine